=== PATIENT | female | born 1985 | race Caucasian/White ===

== ENCOUNTER 2018-05-13 11:07 | Observation (INO) ==
--- NOTE | 2018-05-13 12:36 | Emergency Department Note ---
Disposition Clinical Impression: Elevated bilirubin, Elevated transaminase level, Thickening of wall of gallbladder, Jaundice Disposition: Admitted As Inpatient Condition: Undetermined Time of Disposition: 16:15 General Adult HPI - General Chief complaint: ED Abdominal Pain Stated complaint: Abd Pain Time Seen by Provider: 05/13/18 11:46 Source: patient, EMS Mode of arrival: EMS Limitations: no limitations Nursing Notes Reviewed: Yes Vital Signs Reviewed: Yes - History of Present Illness HPI Narrative: 32-year-old female IV drug abuser arrives to the emergency department with complaint of right upper quadrant abdominal pain and nausea and vomiting. The patient was seen in urgent care earlier today was noted to be jaundiced. 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 Patient states that the patient was concerned when she went to urgent care and they told her to come to the emergency department with concern for possible acute hepatitis. The patient admits to roughly 3 days of skin color. She denies any change in stool color, dysuria, lower abdominal pain, vomiting, headaches, fevers, chills. Patient denies any other complaints at this time - Related Data Home Medications Medication Instructions Recorded Confirmed Albuterol Sulfate [Ventolin Hfa] 2 puff PO DAILY PRN 05/13/18 05/13/18 Loratadine [Claritin] 10 mg PO DAILY 05/13/18 05/13/18 Omeprazole [PriLOSEC] 20 mg PO DAILY 05/13/18 05/13/18 PARoxetine HCl [Paroxetine HCl] 20 mg PO DAILY 05/13/18 05/13/18 Quetiapine Fumarate [SEROquel] 25 mg PO HS 05/13/18 05/13/18 clonazePAM [Clonazepam] 1 tab PO BID 05/13/18 05/13/18 Allergies Allergy/AdvReac Type Severity Reaction Status Date / Time No Known Allergies Allergy Verified 01/27/18 23:39 All systems ED: reviewed and negative except as stated. Constitutional: Denies: fever, chills, weakness ENT ED: Denies: dysphagia Cardiovascular: Denies: chest pain Respiratory: Denies: dyspnea Gastrointestinal: Reports: abdominal pain, nausea. Denies: vomiting, diarrhea, constipation, hematemesis, melena, hematochezia Genitourinary: Denies: urgency, dysuria Musculoskeletal: Denies: back pain, neck pain Integumentary: Denies: rash Neurological: Denies: headache Past Medical History - Past Medical History Attestation: Yes The following information was validated with the patient. Source: patient, old records reviewed Medical history: Reports: asthma Surgical history: Reports: non-contributory Psychiatric history: Reports: anxiety, depression - Social History Smoking Status: Never smoker Alcohol use: Reports: none Drug use: Reports: opiates, marijuana, IV Drug Use Physical Exam - General Limitations: no limitations General appearance: alert, in no apparent distress - Head Head exam: atraumatic, normocephalic, normal inspection - Eye Eye exam: Present: PERRL, EOMI, scleral icterus - ENT ENT exam: normal exam, normal oropharynx, mucous membranes moist - Neck Neck exam: Present: normal inspection, full ROM, trachea midline - Chest Chest inspection: Present: normal inspection, symmetric chest wall rise - Respiratory Respiratory exam: Present: normal lung sounds bilaterally - Cardiovascular Cardiovascular exam: Present: regular rate, normal rhythm, normal heart sounds - Abdominal Exam Abdominal exam: Present: soft, tenderness (RUQ). Absent: distention, guarding, rebound, rigidity, Chapman's sign, Rovsing's sign, tenderness at McBurney's Point, pulsatile mass, hernia - Extremities Exam Extremities exam: Present: normal inspection, full ROM. Absent: tenderness, pedal edema - Neurological Exam Neurological exam: Present: alert, oriented X3, other (No asterixis) - Skin Skin exam: Present: warm, dry, intact, other (Jaundice) Course - Consultations Consultation #1: We spoke with Dr. Camacho in general surgery given the patient's ultrasound. He felt as though this was likely a primary hepatic versus obstructive disease. He recommended MRCP and consultation to GI. He did not recommend antibiotics for further care at this time. Time: 16:07 Consultation #2: We spoke with gastroenterology who recommended MRCP. They will see the patient in consultation. Consultation is placed at this time. Time: 16:07 Vital Signs Pulse Rate 103 05/13/18 13:45 Respiratory Rate 18 05/13/18 13:45 Blood Pressure 106/81 05/13/18 13:45 Temperature 98.2 F 05/13/18 14:06 Pulse Rate 103 05/13/18 14:06 Respiratory Rate 18 05/13/18 14:06 Blood Pressure 106/81 05/13/18 14:06 O2 Sat by Pulse Oximetry 100 05/13/18 14:06 Oxygen Delivery Oxygen Delivery Room Air Medical Decision Making - MDM Narrative Medical decision making narrative: Patient's workup in the emergency department demonstrates findings consistent with concern for acute hepatitis versus biliary obstructive disease. The patient had a right upper quadrant ultrasound which demonstrated gallbladder wall thickening at 15 mm. There was also some noted paracolic cystic fluid. We consulted general surgery, Dr. Camacho, who felt as though this was not associated with the patient's gallbladder and was likely a primary hepatic or obstructive biliary disease. The patient case was also discussed with gastroenterology per recommendation from general surgery. After speaking with gastroenterology, they recommended MRCP and admission to the hospitalist. General surgery stated that they would not recommend antibiotics at this time. We will hold any anabolic. The patient was found to be leukopenic a white blood cell count of 3.1. The patient's bilirubin was elevated both in direct and indirect. The patient's transaminases were also elevated. The patient has no signs of urinary tract infection. The patient is not . We will admit the patient to the hospitalist at this time, accepted by Dr. Garrett. - Lab Data Lab results reviewed: Yes I reviewed the patient's lab results. Result diagrams: 05/13/18 11:37 05/13/18 11:53 Lab Results 05/13/18 05/13/18 05/13/18 Range/Units 11:20 11:20 11:20 WBC (4.3-11.1) K/mcL RBC (3.82-4.97) M/mcL Hgb (11.5-15.4) g/dL Hct (35.3-44.9) % MCV (83.0-100.0) fL MCH (28.0-33.3) pg MCHC (31.6-35.5) g/dL RDW (11.5-14.5) % Plt Count (140-400) K/mcL MPV (9.4-12.4) fL Immature Gran % (0-4) % Seg Neutrophils % % Lymphocytes % % Monocytes % % Eosinophils % % Basophils % % Neutrophils # (1.6-8.9) K/mcL Lymphocytes # (0.6-4.6) K/mcL Monocytes # (0.0-1.3) K/mcL Eosinophils # (0.0-0.6) K/mcL Basophils # (0.0-0.2) K/mcL Reactive Lymphocytes (Not Present) Platelet Estimate (Normal) Immature Plt Fraction (1.1-6.1) % Hypochromasia (Not Present) Poikilocytosis (Not Present) Target Cells (Not Present) PT (9.4-12.1) Seconds INR APTT (26.0-36.0) Seconds Sodium (136-145) mEq/L Potassium (3.5-5.1) mEq/L Chloride (98-107) mEq/L Carbon Dioxide (23-29) mEq/L BUN (6-20) mg/dL Creatinine (0.60-1.20) mg/dL Est GFR ( Amer) (> 60) Est GFR (Non-Af Amer) (> 60) BUN/Creatinine Ratio (6-26) Glucose (70-105) mg/dL Calculated Osmolality (280-300) Calcium (8.6-10.3) mg/dL Total Bilirubin (0.3-1.0) mg/dL Direct Bilirubin (0.0-0.2) mg/dL Indirect Bilirubin (0.0-1.2) mg/dL AST (13-39) Units/L ALT (7-52) Units/L Alkaline Phosphatase (34-104) Units/L Serum Total Protein (6.4-8.9) g/dL Albumin (3.5-5.7) g/dL Globulin (2.4-3.5) g/dL Albumin/Globulin Ratio (1.1-2.2) Lipase (11-82) Units/L Urine Color TNP Yellow Urine Clarity TNP Clear Urine pH TNP 7.5 Ur Specific [place] TNP 1.013 Urine Protein TNP Negative Urine Glucose (UA) TNP Normal Urine Ketones TNP Negative Urine Blood TNP Negative Urine Nitrite TNP Negative Urine Bilirubin TNP Moderate H Urine Urobilinogen TNP Normal Ur Leukocyte Esterase TNP Trace H Urine Microscopic RBC TNP 0-3 Urine Microscopic WBC MAITRE D' 0-3 Ur Squamous Epith Cells TNP Many H Urine Bacteria TNP Moderate H Urine Test Negative (Negative) Hep Bs Antigen (Nonreactive) HIV Ag/Ab Combo Qual (Nonreactive) 05/13/18 05/13/18 05/13/18 Range/Units 11:37 11:37 11:53 WBC 3.1 L (4.3-11.1) K/mcL RBC 4.87 (3.82-4.97) M/mcL Hgb 12.7 (11.5-15.4) g/dL Hct 40.2 (35.3-44.9) % MCV 82.5 L (83.0-100.0) fL MCH 26.1 L (28.0-33.3) pg MCHC 31.6 (31.6-35.5) g/dL RDW 16.2 H (11.5-14.5) % Plt Count 309 (140-400) K/mcL MPV 10.9 (9.4-12.4) fL Immature Gran % 0.3 (0-4) % Seg Neutrophils % 51.8 % Lymphocytes % 37.3 % Monocytes % 8.0 % Eosinophils % 2.3 % Basophils % 0.3 % Neutrophils # 1.6 (1.6-8.9) K/mcL Lymphocytes # 1.2 (0.6-4.6) K/mcL Monocytes # 0.3 (0.0-1.3) K/mcL Eosinophils # 0.1 (0.0-0.6) K/mcL Basophils # 0.0 (0.0-0.2) K/mcL Reactive Lymphocytes Present A (Not Present) Platelet Estimate Normal (Normal) Immature Plt Fraction 3.4 (1.1-6.1) % Hypochromasia Present A (Not Present) Poikilocytosis 1+ A (Not Present) Target Cells 1+ A (Not Present) PT 14.9 H (9.4-12.1) Seconds INR 1.3 APTT 34.3 (26.0-36.0) Seconds Sodium 140 (136-145) mEq/L Potassium 3.8 (3.5-5.1) mEq/L Chloride 104 (98-107) mEq/L Carbon Dioxide 28 (23-29) mEq/L BUN 4 L (6-20) mg/dL Creatinine 0.63 (0.60-1.20) mg/dL Est GFR ( Amer) > 60 (> 60) Est GFR (Non-Af Amer) > 60 (> 60) BUN/Creatinine Ratio 6 (6-26) Glucose 105 (70-105) mg/dL Calculated Osmolality 287 (280-300) Calcium 9.2 (8.6-10.3) mg/dL Total Bilirubin 6.9 H (0.3-1.0) mg/dL Direct Bilirubin 5.0 H (0.0-0.2) mg/dL Indirect Bilirubin 1.9 H (0.0-1.2) mg/dL AST 313 H (13-39) Units/L ALT > 500 H (7-52) Units/L Alkaline Phosphatase 302 H (34-104) Units/L Serum Total Protein 7.1 (6.4-8.9) g/dL Albumin 3.5 (3.5-5.7) g/dL Globulin 3.6 H (2.4-3.5) g/dL Albumin/Globulin Ratio 1.0 L (1.1-2.2) Lipase 71 (11-82) Units/L Urine Color Urine Clarity Urine pH Ur Specific [place] Urine Protein Urine Glucose (UA) Urine Ketones Urine Blood Urine Nitrite Urine Bilirubin Urine Urobilinogen Ur Leukocyte Esterase Urine Microscopic RBC Urine Microscopic WBC Ur Squamous Epith Cells Urine Bacteria Urine Test (Negative) Hep Bs Antigen (Nonreactive) HIV Ag/Ab Combo Qual (Nonreactive) 05/13/18 Range/Units 11:53 WBC (4.3-11.1) K/mcL RBC (3.82-4.97) M/mcL Hgb (11.5-15.4) g/dL Hct (35.3-44.9) % MCV (83.0-100.0) fL MCH (28.0-33.3) pg MCHC (31.6-35.5) g/dL RDW (11.5-14.5) % Plt Count (140-400) K/mcL MPV (9.4-12.4) fL Immature Gran % (0-4) % Seg Neutrophils % % Lymphocytes % % Monocytes % % Eosinophils % % Basophils % % Neutrophils # (1.6-8.9) K/mcL Lymphocytes # (0.6-4.6) K/mcL Monocytes # (0.0-1.3) K/mcL Eosinophils # (0.0-0.6) K/mcL Basophils # (0.0-0.2) K/mcL Reactive Lymphocytes (Not Present) Platelet Estimate (Normal) Immature Plt Fraction (1.1-6.1) % Hypochromasia (Not Present) Poikilocytosis (Not Present) Target Cells (Not Present) PT (9.4-12.1) Seconds INR APTT (26.0-36.0) Seconds Sodium (136-145) mEq/L Potassium (3.5-5.1) mEq/L Chloride (98-107) mEq/L Carbon Dioxide (23-29) mEq/L BUN (6-20) mg/dL Creatinine (0.60-1.20) mg/dL Est GFR ( Amer) (> 60) Est GFR (Non-Af Amer) (> 60) BUN/Creatinine Ratio (6-26) Glucose (70-105) mg/dL Calculated Osmolality (280-300) Calcium (8.6-10.3) mg/dL Total Bilirubin (0.3-1.0) mg/dL Direct Bilirubin (0.0-0.2) mg/dL Indirect Bilirubin (0.0-1.2) mg/dL AST (13-39) Units/L ALT (7-52) Units/L Alkaline Phosphatase (34-104) Units/L Serum Total Protein (6.4-8.9) g/dL Albumin (3.5-5.7) g/dL Globulin (2.4-3.5) g/dL Albumin/Globulin Ratio (1.1-2.2) Lipase (11-82) Units/L Urine Color Urine Clarity Urine pH Ur Specific [place] Urine Protein Urine Glucose (UA) Urine Ketones Urine Blood Urine Nitrite Urine Bilirubin Urine Urobilinogen Ur Leukocyte Esterase Urine Microscopic RBC Urine Microscopic WBC Ur Squamous Epith Cells Urine Bacteria Urine Test (Negative) Hep Bs Antigen Nonreactive (Nonreactive) HIV Ag/Ab Combo Qual Nonreactive (Nonreactive) - Radiology Data Radiology results reviewed: Yes I reviewed the patient's radiology results. Gallbladder Ultrasound 05/13/18 15:29 IMPRESSION: Prominent gallbladder wall thickening with small sludge and pericholecystic fluid, concerning for acute cholecystitis. No biliary dilatation identified. D/ / Luigi Gee / Luigi Gee Interpreting Provider: Luigi Gee Attestation Statement - Attestation Attestation: I examined this patient and my medical decision-making was reviewed with the Resident Physician. I agree with the documented findings, disposition and tr eatment plan as described except to the extent set forth below. Suspects acute hepatitis C infection. Patient's INR is actually normal. Gallbladder ultrasound does suggest some gallbladder wall thickening with no stones. I do suspect this is reactionary from underlying inflammation from hepatitis. We will admit for further management workup by gastroenterology.
[2018-05-13 12:48] LABS: INR 1.3; Prothrombin Time 14.9 Seconds (9.4-12.1)
[2018-05-13 12:51] LABS: Activated Partial Thrombo Time 34.3 Seconds (26.0-36.0)
[2018-05-13] MEDS ORDERED: Ondansetron 4 MG/2 ML VIAL ONE (13:12)
[2018-05-13 13:35] LABS: Basophils % 0.3 %; Eosinophils # 0.1 K/mcL (0.0-0.6); Eosinophils % 2.3 %; Hematocrit 40.2 % (35.3-44.9); Hemoglobin 12.7 g/dL (11.5-15.4); Immature Granulocytes % 0.3 % (0-4); Immature Platelets 3.4 % (1.1-6.1); Lymphocytes # 1.2 K/mcL (0.6-4.6); Lymphocytes % 37.3 %; Mean Corpuscular HGB Conc 31.6 g/dL (31.6-35.5); Mean Corpuscular Hemoglobin 26.1 pg (28.0-33.3); Mean Corpuscular Volume 82.5 fL (83.0-100.0); Mean Platelet Volume 10.9 fL (9.4-12.4); Monocytes # 0.3 K/mcL (0.0-1.3); Neutrophils # 1.6 K/mcL (1.6-8.9); Platelet Count 309 K/mcL (140-400); Red Blood Count 4.87 M/mcL (3.82-4.97); Red Cell Distribution Width 16.2 % (11.5-14.5); Segmented Neutrophils % 51.8 %
[2018-05-13 13:59] LABS: Hypochromasia Present (Not Present); Platelet Estimate Normal (Normal); Reactive Lymphocytes Present (Not Present)
[2018-05-13 14:00] LABS: Poikilocytosis 1+ (Not Present); Target Cells 1+ (Not Present)
[2018-05-13 15:07] LABS: Alanine Aminotransferase > 500 Units/L (7-52); Albumin 3.5 g/dL (3.5-5.7); Alkaline Phosphatase 302 Units/L (34-104); Aspartate Amino Transferase 313 Units/L (13-39); BUN/Creatinine Ratio 6 (6-26); Bilirubin,Indirect 1.9 mg/dL (0.0-1.2); Bilirubin,Total 6.9 mg/dL (0.3-1.0); Blood Urea Nitrogen 4 mg/dL (6-20); Calcium 9.2 mg/dL (8.6-10.3); Carbon Dioxide 28 mEq/L (23-29); Chloride 104 mEq/L (98-107); Globulin 3.6 g/dL (2.4-3.5); Glucose 105 mg/dL (70-105); Lipase 71 Units/L (11-82); Osmolality,Calculated 287 (280-300); Potassium 3.8 mEq/L (3.5-5.1); Sodium 140 mEq/L (136-145); Total Protein 7.1 g/dL (6.4-8.9); eGFR For Non-African Americans > 60 (> 60)
[2018-05-13 15:18] LABS: HIV-1&2 Antibody & p24 Ag Nonreactive (Nonreactive); Hepatitis B Surface Antigen Nonreactive (Nonreactive)
[2018-05-13 15:45] LABS: Bilirubin,Urine Moderate (Negative); Blood,Urine Negative (Negative); Clarity,Urine Clear (Clear); Color,Urine Yellow (Yellow); Glucose,Urine (UA) Normal (Normal); Ketones,Urine Negative (Negative); PH,Urine 7.5 pH Units (5.0-8.0); Specific Gravity,Urine 1.013 (1.010-1.025)
[2018-05-13 15:46] LABS: Bacteria,Urine Moderate per hpf (None-Few); Leukocyte Esterase,Urine Trace (Negative); Nitrite,Urine Negative (Negative); Protein,Urine Negative (Neg-Trace); RBC,Urine 0-3 per hpf (0-3); Squamous Epithelial Cell,Urine Many per lpf (None-Few); Urobilinogen,Urine Normal (Normal); WBC,Urine 0-3 per hpf (0-3)
--- NOTE | 2018-05-13 16:48 | Internal Med History&Physical ---
Date of Encounter: 05/13/18 Time of Encounter: 16:43 Internal Medicine - H&P: HPI Chief complaint: RUQ abdominal pain Admitted From: Home Plans for Post Hospital Care: Home History of present illness: Ms. Miroslava Donato is a 32 year old female with history of IV drug use with heroine who presents with jaundice. She reports using heroine 05/12/2018. States she notice she was turning yellow a week ago and her urine was dark. States she was having pain that would come when she would breath deep. She states she has been cold. She denies nausea and vomiting. She reports some dysuria, but denies frequency or urgency. She denies hx of STD, HIV, and HEpatitis. She states she is currently with 3 children. In ED WBC 3.1, hgb 12.7, hct 40.2. PT 14.9, INR 1.3. NA 140, K 3.8, BUN 4, Cr 0.63. Total bilirubin 6.9, AST 313, ALT > 500, Alk phos 302. Lipase 71. Urine bilirubin moderate, trace leuks, mod squamous epith, moderate bacteria. Urine HCG neg. Hep Bs antigen Non-reactive, HIV ag/ab non-reactive. Abdominal US US/US gall bladder IMPRESSION: Prominent gallbladder wall thickening with small sludge and pericholecystic fluid, concerning for acute cholecystitis. No biliary dilatation identified. CODE STATUS: FULL Past Med Surg Social Fam HX - Past Medical History Medical history: asthma Additional medical history: duodenal ulcer. UTIs Psychiatric history: anxiety, depression - Past Surgical History Surgical History: non-contributory Additional surgical history: tubal ligation. teeth extracted. bladder tuck. ear tubes - Social History Smoking Status: Never smoker Alcohol use: none Drug use: opiates, marijuana, IV Drug Use Internal Medicine - H&P: Meds Cyclobenzaprine [Flexeril] 10 mg PO BID PRN #6 tablet 01/28/18 [Rx] Naproxen [Naprosyn] 250 mg PO BID PRN #6 tablet 01/28/18 [Rx] Albuterol Sulfate [Ventolin Hfa] 05/13/18 [History] Loratadine [Claritin] 05/13/18 [History] Omeprazole [PriLOSEC] 05/13/18 [History] PARoxetine HCl [Paroxetine HCl] 20 mg PO 05/13/18 [History] Quetiapine Fumarate [SEROquel] 25 mg PO HS 05/13/18 [History] clonazePAM [Clonazepam] 05/13/18 [History] Allergy/AdvReac Type Severity Reaction Status Date / Time No Known Allergies Allergy Verified 01/27/18 23:39 All Systems PM: A 10-system review of systems was performed and is negative for pertinent findings except as documented above in the HPI. - Constitutional Vitals: Temp Pulse Resp BP Pulse Ox 98.2 F 103 18 106/81 100 05/13/18 14:06 05/13/18 14:06 05/13/18 14:06 05/13/18 14:06 05/13/18 14:06 General appearance: Present: A&O X 3, no acute distress Exam: Pt appears to be high or under the influence of drugs - Head Head exam: Present: atraumatic, normocephalic - Eye Eye exam: Present: PERRL, scleral icterus ( ), conjuntiva pink Pupils: Present: PERRL - Neck Neck exam general surgery: Present: supple, trachea midline. Absent: lymphadenopathy - Respiratory Respiratory exam: Present: CTAB. Absent: accessory muscle use, rales, rhonchi, wheezes - Cardiovascular Cardiovascular exam: Present: RRR, +S1, +S2. Absent: diastolic murmur, gallop, rubs, systolic murmur - GI/Abdominal GI/Abdominal exam: Present: normal bowel sounds, soft, no peritoneal signs. Absent: distended, tenderness - Extremities Exam Extremities exam: Present: warm, radial pulses palpable and symmetrical. Absent: calf tenderness, cyanotic, pedal edema - Neurological Exam Neurological exam: Present: CN II-XII intact, oriented X3, no focal deficits. Absent: pronater drift, facial droop, speech deficit - Skin Skin exam: Present: dry, intact Additional comments: multiple skin tattoos and jaundice Internal Med - H&P Results - Labs CBC & Chem 7: 05/13/18 11:37 05/13/18 11:53 Labs: Short CBC 05/13/18 Range/Units 11:37 WBC 3.1 L (4.3-11.1) K/mcL Hgb 12.7 (11.5-15.4) g/dL Hct 40.2 (35.3-44.9) % Plt Count 309 (140-400) K/mcL Neutrophils # 1.6 (1.6-8.9) K/mcL BMP 05/13/18 11:53 Sodium 140 Potassium 3.8 Chloride 104 Carbon Dioxide 28 BUN 4 L Creatinine 0.63 Glucose 105 Calcium 9.2 Liver Function 05/13/18 Range/Units 11:53 Total Bilirubin 6.9 H (0.3-1.0) mg/dL Direct Bilirubin 5.0 H (0.0-0.2) mg/dL AST 313 H (13-39) Units/L ALT > 500 H (7-52) Units/L Alkaline Phosphatase 302 H (34-104) Units/L Albumin 3.5 (3.5-5.7) g/dL Urine 05/13/18 05/13/18 Range/Units 11:20 11:20 Urine Color TNP Yellow Urine Clarity TNP Clear Urine pH TNP 7.5 Ur Specific [place] TNP 1.013 Urine Protein TNP Negative Urine Glucose (UA) TNP Normal - Impressions ITS Impressions Gallbladder Ultrasound 05/13/18 15:29 IMPRESSION: Prominent gallbladder wall thickening with small sludge and pericholecystic fluid, concerning for acute cholecystitis. No biliary dilatation identified. D/ / Luigi Gee / Luigi Gee Interpreting Provider: Luigi Gee - Assessment and plan (1) Acute hepatitis Current Visit: Yes Status: Acute Assessment and plan: Elevated transaminase. Hepatitis panel pending. Will monitor CMP QD. (2) Elevated transaminase level Current Visit: Yes Status: Acute Assessment and plan: Pt denies prior history of hepatitis. Checking hepatitis panel. Abdominal US showing wall thickening which can also been seen in acute Hep A. Will monitor LFT's. GI consulted by ED (3) Elevated bilirubin Current Visit: Yes Status: Acute Assessment and plan: Bili 6.9. Will rehceck levels in am. (4) Thickening of wall of gallbladder Current Visit: Yes Status: Acute Assessment and plan: Pt afebrile and WBC 3.1. Will check NM scan if Hep panel neg. (5) Jaundice Current Visit: Yes Status: Acute Assessment and plan: Bilirubin 6.9. Will monitor CMP and Hepatitis panel in progress. (6) IV drug user Current Visit: Yes Status: Acute Assessment and plan: Pt admits to using heroine. Will check urine tox screen. - Time Spent With Patient Total time spent is greater than 50% in coordination of care (as documented) at patient's floor/unit and/or counseling patient: 25 - 35 minutes
[2018-05-13] MEDS ORDERED: Naloxone 0.4 MG/ML INJ IVP PRN (17:46)
[2018-05-13] MEDS: traMADol 50 MG TABLET PO PRN (18:50)
[2018-05-13] MEDS: Ondansetron 4 MG/2 ML VIAL IVP PRN (18:50)
[2018-05-13 22:00] LABS: Amphetamine Screen,Urine Negative ng/mL (Cutoff=1000); Barbiturate Screen,Urine Negative ng/mL (Cutoff=200); Benzodiazepines Screen,Urine Positive ng/mL (Cutoff=200); Cannabinoid Screen,Urine Negative ng/mL (Cutoff = 50); Cocaine Screen,Urine Negative ng/mL (Cutoff= 300); Opiate Screen,Urine Positive ng/mL (Cutoff=300); Phencyclidine Screen,Urine Negative ng/mL (Cutoff=25)
[2018-05-13] MEDS: clonazePAM 0.5 MG TABLET PO SCH (23:01)
[2018-05-14 01:46] LABS: Hepatitis A Antibody IgM Reactive (Nonreactive); Hepatitis C Virus Antibody Reactive (Nonreactive)
[2018-05-14 01:57] LABS: Hepatitis B Core IgM Nonreactive (Nonreactive)
[2018-05-14 05:37] LABS: Basophils % 0.3 %; Eosinophils # 0.1 K/mcL (0.0-0.6); Eosinophils % 1.9 %; Hemoglobin 9.1 g/dL (11.5-15.4); Lymphocytes # 1.4 K/mcL (0.6-4.6); Lymphocytes % 37.1 %; Mean Corpuscular HGB Conc 31.4 g/dL (31.6-35.5); Mean Corpuscular Hemoglobin 25.8 pg (28.0-33.3); Mean Corpuscular Volume 82.2 fL (83.0-100.0); Monocytes # 0.4 K/mcL (0.0-1.3); Monocytes % 10.4 %; Neutrophils # 1.9 K/mcL (1.6-8.9); Platelet Count 297 K/mcL (140-400); Red Blood Count 3.53 M/mcL (3.82-4.97); Red Cell Distribution Width 16.6 % (11.5-14.5); Segmented Neutrophils % 50.3 %
[2018-05-14] MEDS: *HR* Enoxaparin 40 MG/0.4 ML SYRINGE SQ SCH (06:11)
[2018-05-14 06:33] LABS: Platelet Estimate Normal (Normal); Reactive Lymphocytes Present (Not Present)
[2018-05-14] MEDS ORDERED: clonazePAM 0.5 MG TABLET PO SCH (09:00)
[2018-05-14] MEDS: clonazePAM 0.5 MG TABLET PO SCH ×2 (09:13→20:41)
[2018-05-14] MEDS: Loratadine 10 MG TABLET PO SCH (09:13)
[2018-05-14] MEDS: 0.9 % Sodium Chloride 1,000 ML IVC SCH (10:41)
[2018-05-14] MEDS: traMADol 50 MG TABLET PO PRN (10:42)
[2018-05-14] MEDS: Ondansetron 4 MG/2 ML VIAL IVP PRN (10:43)
--- NOTE | 2018-05-14 10:44 | Gastroenterology Consult Note ---
<Wellington Snider - Last Filed: 05/14/18 10:41> Date of Encounter: 05/14/18 Time of Encounter: 09:45 - Assessment and plan (1) Hepatitis A Current Visit: Yes Status: Acute Assessment and plan: Hepatitis A positive. Pt does eat at a restaurant frequently. Continue to monitor hepatic panel. HAV infection is usually a self-limited illness. Fulminant hepatic failure occurs in less than 1 percent of cases. Infection confers lifelong immunity. - Handwashing (including after using the bathroom, changing diapers, and before preparing or eating foods). - Heating foods appropriately (the virus can be inactivated by heating to >185F for one minute). Cooked foods can transmit HAV if the temperature during food preparation is inadequate to kill the virus or if food is contaminated after cooking. - Chlorine, iodine, and disinfecting solutions (household bleach 1:100 dilution) are effective for inactivation of HAV. Qualifiers: Hepatic coma status: without hepatic coma Qualified Code(s): B15.9 - Hepatitis A without hepatic coma (2) Hepatitis C antibody positive in blood Current Visit: Yes Status: Acute Assessment and plan: Hepatitis C screening positive. Will complete liver workup including hepatitis C quantitative and genotype to assess for active infection. Patient must be drug and alcohol free in order to qualify for treatment. Instructed patient to not share any thing that could potentially cause bleeding such as razors, nail clippers, hair clippers, needles. Instructed patient that if they were to cut themselves they need to clean up the blood or if someone else cleans up they need to wear gloves. Instructed patient they need to use protection while having sex. (3) Jaundice Current Visit: Yes Status: Acute Assessment and plan: Secondary to hepatitis A. (4) IV drug user Current Visit: Yes Status: Acute - Time Spent With Patient Total time spent is greater than 50% in coordination of care (as documented) at patient's floor/unit and/or counseling patient: GI History of Present Illness - Data of Consult Patient: new to practice Consult date: 05/14/18 Requesting Physician: Paolo Appiah MD - Consult Narrative Reason for consult: Hepatitis History of present illness: Ms. Miroslava Donato is a 32 year old female with PMHx of asthma and IV drug use who presented with jaundice. She reports using heroin 05/12/2018. She reports sharin g needles and denies any intranasal drug use. She has multiple tattoos, and states they were all professionally completed. She reports eating out frequently. States she notice she was turning yellow a week ago and her urine was dark. She denies hx of STD, HIV, and Hepatitis. She denies any change in stool color, dysuria, lower abdominal pain, vomiting, headaches, fevers, chills. RUQ US showed gallbladder wall thickening at 15 mm with small sludge and pericholecystic fluid, concerning for acute cholecystitis. MRCP with gallbladder sludge, periportal edema, diffuse moderate wall edema of the gallbladder which shows intraluminal sludge could be due to hepatitis if applicable, acute cholecystitis is possible. Hepatitis profile positive for Hepatitis A, also hepatitis C screening was positive. Procedures: None NSAIDs: None Anticoagulation: None Past Med Surg Social Fam HX - Past Medical History Medical history: asthma Additional medical history: duodenal ulcer. UTIs Psychiatric history: anxiety, depression - Past Surgical History Surgical History: non-contributory Additional surgical history: tubal ligation. teeth extracted. bladder tuck. ear tubes - Social History Smoking Status: Never smoker Smokeless Tobacco Status: No Alcohol use: none Drug use: opiates, marijuana, IV Drug Use - Family History Mother History Unknown: Yes Father History Unknown: Yes - Gastrointestinal Gastrointestinal: Present: as per HPI - Constitutional Constitutional: as per HPI - EENT Eyes: as per HPI Ears: Present: as per HPI Nose, mouth and throat: Present: as per HPI - Cardiovascular Cardiovascular ROS: Present: as per HPI - Respiratory Respiratory IM: Present: as per HPI - Genitourinary Genitourinary: Absent: change in color, Urinary frequency - Neurological ROS Neurological GI: Present: as per HPI - Hematologic/Lymphatic Hematologic/Lymphatic pediatric: Present: as per HPI - Musculoskeletal Musculoskeletal ROS GI: Present: as per HPI - Psychiatric ROS Psychiatric GI: Present: as per HPI - Endocrine Endocrine IM: Present: as per HPI - Constitutional Vitals: Temp Pulse Resp BP Pulse Ox 98.2 F 96 16 99/66 95 05/14/18 07:06 05/14/18 07:06 05/14/18 07:06 05/14/18 07:06 05/14/18 07:06 General appearance: Present: cooperative, A&O X 3, no acute distress, answers questions appropriately - Head Head exam: Present: atraumatic, normocephalic - Eye Eye exam: Present: scleral icterus. Absent: normal appearance - ENT ENT exam: Present: mucous membranes moist - Neck Neck exam general surgery: Present: normal inspection, trachea midline - Respiratory Respiratory exam: Present: CTAB. Absent: rales, rhonchi, wheezes - Cardiovascular Cardiovascular exam: Present: RRR, +S1, +S2 - GI/Abdominal GI/Abdominal exam: Present: soft, tenderness (RUQ), no peritoneal signs. Absent: distended, firm, guarding - Rectal Rectal exam: Present: deferred - Extremities Exam Extremities exam: Present: warm - Neurological Exam Neurological exam: Present: no focal deficits - Psychiatric Psychiatric exam: Present: normal affect, normal mood - Skin Skin exam: Present: dry, intact, warm. Absent: normal color (jaundice) Additional comments: multiple tattoos Results - Labs CBC & Chem 7: 05/14/18 05:16 05/13/18 11:53 Labs: Last Result Calcium 9.2 mg/dL (8.6-10.3) 05/13/18 11:53 Urine Opiates Screen Positive ng/mL (Tpbzca=[id number]) H 05/13/18 20:50 Entire Visit Hgb 9.1 g/dL (11.5-15.4) L D 05/14/18 05:16 Hct 29.0 % (35.3-44.9) L 05/14/18 05:16 PT 14.9 Seconds (9.4-12.1) H 05/13/18 11:37 Total Bilirubin 6.9 mg/dL (0.3-1.0) H 05/13/18 11:53 AST 313 Units/L (13-39) H 05/13/18 11:53 ALT > 500 Units/L (7-52) H 05/13/18 11:53 Lipase 71 Units/L (11-82) 05/13/18 11:53 - ABG ABG results: PT/INR, D-dimer PT 14.9 Seconds (9.4-12.1) H 05/13/18 11:37 - Impressions Impressions Gallbladder Ultrasound 05/13/18 15:29 IMPRESSION: Prominent gallbladder wall thickening with small sludge and pericholecystic fluid, concerning for acute cholecystitis. No biliary dilatation identified. D/ / Luigi Gee / Luigi Gee Interpreting Provider: Luigi Gee Abdomen MRI 05/13/18 16:04 IMPRESSION: Gallbladder sludge. Periportal edema, nonspecific finding which can be seen acute inflammatory processes in the upper abdomen to include hepatitis. Diffuse moderate wall edema of the gallbladder which shows intraluminal sludge. Gallbladder wall edema could be due to hepatitis if applicable. Acute cholecystitis is possible. Hepatobiliary scan may be helpful if indicated. Normal MRCP. Acute cholecystitis is D/ / Tena Bain Cha, MD / Tena Bain Cha, MD Interpreting Provider: Tena Bain Cha, MD Consult Discharge Plan - Plan Referrals: Suzie Acharya CNP [Primary Care Provider] - <Jamir Reed - Last Filed: 05/14/18 18:41> Time of Encounter: 12:00 - Time Spent With Patient Total time spent is greater than 50% in coordination of care (as documented) at patient's floor/unit and/or counseling patient: GI History of Present Illness - Data of Consult Requesting Physician: Paolo Appiah MD - Consult Narrative History of present illness: Ms. Miroslava Donato is a 32 year old female - Constitutional Vitals: Temp Pulse Resp BP Pulse Ox 98.5 F 96 16 110/75 96 05/14/18 14:11 05/14/18 14:11 05/14/18 14:11 05/14/18 14:11 05/14/18 14:11 Results - Labs CBC & Chem 7: 05/14/18 05:16 05/14/18 10:23 Labs: Last Result Calcium 8.9 mg/dL (8.6-10.3) 05/14/18 10:23 Ferritin 166 ng/mL (10-120) H 05/14/18 10:23 Urine Opiates Screen Positive ng/mL (Myxnpc=336) H 05/13/18 20:50 Entire Visit Hgb 9.1 g/dL (11.5-15.4) L D 05/14/18 05:16 Hct 29.0 % (35.3-44.9) L 05/14/18 05:16 PT 14.9 Seconds (9.4-12.1) H 05/13/18 11:37 Ferritin 166 ng/mL (10-120) H 05/14/18 10:23 Total Bilirubin 6.5 mg/dL (0.3-1.0) H 05/14/18 10:23 AST 222 Units/L (13-39) H 05/14/18 10:23 ALT > 500 Units/L (7-52) H 05/14/18 10:23 Lipase 71 Units/L (11-82) 05/13/18 11:53 - ABG ABG results: PT/INR, D-dimer PT 14.9 Seconds (9.4-12.1) H 05/13/18 11:37 - Attending Attestation I have personally performed a face to face evaluation on this patient. I have reviewed and agree with the care plan. History and Exam by me shows: pT SEEN, complaining of epigastric pain, o/e : Epigastric tanderness. A: Acute hepatitis A with elevated LFTS. Alos hep C positive Rec: Suppotive care, Pt still uses drugs
[2018-05-14 12:17] LABS: Alanine Aminotransferase > 500 Units/L (7-52); Albumin 3.3 g/dL (3.5-5.7); Alkaline Phosphatase 295 Units/L (34-104); Aspartate Amino Transferase 222 Units/L (13-39); BUN/Creatinine Ratio 11 (6-26); Bilirubin,Total 6.5 mg/dL (0.3-1.0); Blood Urea Nitrogen 8 mg/dL (6-20); Calcium 8.9 mg/dL (8.6-10.3); Carbon Dioxide 30 mEq/L (23-29); Chloride 99 mEq/L (98-107); Globulin 3.3 g/dL (2.4-3.5); Glucose 88 mg/dL (70-105); Osmolality,Calculated 278 (280-300); Potassium 3.8 mEq/L (3.5-5.1); Sodium 135 mEq/L (136-145); Total Protein 6.6 g/dL (6.4-8.9); eGFR For Non-African Americans > 60 (> 60)
[2018-05-14] MEDS ORDERED: Acetaminophen 325 MG TABLET PO ONE (13:49)
--- NOTE | 2018-05-14 18:04 | Internal Med Progress Note ---
Hospitalist Progress Note - Encounter Date of Encounter: 05/14/18 Time of Encounter: 18:02 - Subjective Interval History: Pt denies fever or chills. Jaundice about the same. She denies N/V or diarrhea. Pt states abdominal pain improved. Denies chest pain or SOB - Exam Vitals: Temp Pulse Resp BP Pulse Ox 98.5 F 96 16 110/75 96 05/14/18 14:11 05/14/18 14:11 05/14/18 14:11 05/14/18 14:11 05/14/18 14:11 Exam: General appearance: Present: A&O X 3, no acute distress. Pt appeared to be high or under the influence of drugs on admission. Exam: Pt appears to be high or under the influence of drugs - Head Head exam: Present: atraumatic, normocephalic - Eye Eye exam: Present: PERRL, scleral icterus ( ), conjuntiva pink Pupils: Present: PERRL - Neck Neck exam general surgery: Present: supple, trachea midline. Absent: lymphadenopathy - Respiratory Respiratory exam: Present: CTAB. Absent: accessory muscle use, rales, rhonchi, wheezes - Cardiovascular Cardiovascular exam: Present: RRR, +S1, +S2. Absent: diastolic murmur, gallop, rubs, systolic murmur - GI/Abdominal GI/Abdominal exam: Present: normal bowel sounds, soft, no peritoneal signs. Ab sent: distended, tenderness - Extremities Exam Extremities exam: Present: warm, radial pulses palpable and symmetrical. Absent: calf tenderness, cyanotic, pedal edema - Neurological Exam Neurological exam: Present: CN II-XII intact, oriented X3, no focal deficits. Absent: pronater drift, facial droop, speech deficit - Skin Skin exam: Present: dry, intact Additional comments: multiple skin tattoos and jaundice - Assessment and Plan (1) Acute hepatitis Current Visit: Yes Status: Acute Assessment and Plan: Elevated transaminases. Hepatitis panel resulted and positive Hep A and Hep C. Will continue to monitor CMP QD. Seen bby GI and Educated on Hep A. work up ordered for Hep C, Hep C quantitative and genotype to assess for active infection. Follow up out pt with GI at discharge. (2) Elevated transaminase level Current Visit: Yes Status: Acute Assessment and Plan: Pt denies prior history of hepatitis. Hepatitis panel positive for Hep A and Hep C. Abdominal US showing wall thickening which can also been seen in acute Hep A. Will continue to monitor LFT's. GI consulted by ED and saw in consult. (3) Elevated bilirubin Current Visit: Yes Status: Acute Assessment and Plan: Bili 6.9 now 6.5. Will rehceck levels in am. (4) Thickening of wall of gallbladder Current Visit: Yes Status: Acute Assessment and Plan: Pt afebrile and WBC 3.1. Will hold off on NM scan since Hep panel positive. (5) Jaundice Current Visit: Yes Status: Acute Assessment and Plan: Bilirubin 6.9. Will monitor CMP and Hepatitis panel in progress. (6) IV drug user Current Visit: Yes Status: Acute Assessment and Plan: Pt admits to using heroine. Will check urine tox screen. DVT Prophylaxis: Lovenox - Summary of Assessment and Plan Summary of Assessment and Plan: Ms. Miroslava Donato is a 32 year old female with PMHx of asthma and IV drug use who presented with jaundice. She reports using heroin 05/12/2018. She reports sharing needles and denies any intranasal drug use. She has multiple tattoos, and states they were all professionally completed. She reports eating out frequently. States she notice she was turning yellow a week ago and her urine was dark. She denies hx of STD, HIV, and Hepatitis. She denies any change in stool color, dysuria, lower abdominal pain, vomiting, headaches, fevers, chills. RUQ US showed gallbladder wall thickening at 15 mm with small sludge and pericholecystic fluid, concerning for acute cholecystitis. MRCP with gallbladder sludge, periportal edema, diffuse moderate wall edema of the gallbladder which shows intraluminal sludge could be due to hepatitis if applicable, acute cholecystitis is possible. - Time Spent with Patient Total time spent is greater than 50% in coordination of care (as documented) at patient's floor/unit and/or counseling patient: less than 15 minutes Plan of Care Discussed with: patient Internal Medicine: Result - Labs CBC & Chem 7: 05/14/18 05:16 05/14/18 10:23 Labs: Short CBC 05/14/18 Range/Units 05:16 WBC 3.8 L (4.3-11.1) K/mcL Hgb 9.1 L D (11.5-15.4) g/dL Hct 29.0 L (35.3-44.9) % Plt Count 297 (140-400) K/mcL Neutrophils # 1.9 (1.6-8.9) K/mcL BMP 05/14/18 10:23 Sodium 135 L Potassium 3.8 Chloride 99 Carbon Dioxide 30 H BUN 8 Creatinine 0.71 Glucose 88 Calcium 8.9 Liver Function 05/14/18 Range/Units 10:23 Total Bilirubin 6.5 H (0.3-1.0) mg/dL AST 222 H (13-39) Units/L ALT > 500 H (7-52) Units/L Alkaline Phosphatase 295 H (34-104) Units/L Albumin 3.3 L (3.5-5.7) g/dL - ABG Interpretation ABG results: PT/INR, D-dimer PT 14.9 Seconds (9.4-12.1) H 05/13/18 11:37 - Impressions Impressions Abdomen MRI 05/13/18 16:04 IMPRESSION: Gallbladder sludge. Periportal edema, nonspecific finding which can be seen acute inflammatory processes in the upper abdomen to include hepatitis. Diffuse moderate wall edema of the gallbladder which shows intraluminal sludge. Gallbladder wall edema could be due to hepatitis if applicable. Acute cholecystitis is possible. Hepatobiliary scan may be helpful if indicated. Normal MRCP. Acute cholecystitis is D/ / Tena Bain Cha, MD / Tena Bain Cha, MD Interpreting Provider: Tena Bain Cha, MD Consult Discharge Plan - Plan Referrals: Suzie Acharya CNP [Primary Care Provider] -
[2018-05-15] MEDS: 0.9 % Sodium Chloride 1,000 ML IVC SCH ×2 (03:27→17:37)
[2018-05-15 04:30] LABS: Eosinophils # 0.1 K/mcL (0.0-0.6); Hematocrit 27.9 % (35.3-44.9); Lymphocytes # 1.3 K/mcL (0.6-4.6); Mean Corpuscular HGB Conc 32.3 g/dL (31.6-35.5); Mean Corpuscular Hemoglobin 25.9 pg (28.0-33.3); Mean Corpuscular Volume 80.4 fL (83.0-100.0); Mean Platelet Volume 10.6 fL (9.4-12.4); Platelet Count 266 K/mcL (140-400); Red Blood Count 3.47 M/mcL (3.82-4.97); Red Cell Distribution Width 16.8 % (11.5-14.5)
[2018-05-15 05:09] LABS: Monocytes # 0.1 K/mcL (0.0-1.3); Neutrophils # 1.3 K/mcL (1.6-8.9); Platelet Estimate Normal (Normal)
[2018-05-15 05:10] LABS: Reactive Lymphocytes Present (Not Present)
[2018-05-15] MEDS: *HR* Enoxaparin 40 MG/0.4 ML SYRINGE SQ SCH (06:12)
[2018-05-15] MEDS: Ondansetron 4 MG/2 ML VIAL IVP PRN ×2 (06:15→21:32)
[2018-05-15] MEDS: Loratadine 10 MG TABLET PO SCH (08:34)
[2018-05-15] MEDS: traMADol 50 MG TABLET PO PRN ×2 (08:34→21:32)
[2018-05-15] MEDS: clonazePAM 0.5 MG TABLET PO SCH ×2 (08:34→21:29)
[2018-05-15] MEDS ORDERED: Acetaminophen/Butalbital/CaffeineTABLET PO ONE (09:20)
--- NOTE | 2018-05-15 13:35 | Internal Med Progress Note ---
Hospitalist Progress Note - Encounter Date of Encounter: 05/15/18 Time of Encounter: 13:32 - Subjective Interval History: Pt denies fever or chills. Jaundice about the same. She denies N/V or diarrhea. Pt states abdominal pain improved. Denies chest pain or SOB - Exam Vitals: Temp Pulse Resp BP Pulse Ox 98.1 F 92 16 110/80 96 05/15/18 10:21 05/15/18 10:21 05/15/18 10:21 05/15/18 10:21 05/15/18 10:21 Exam: General appearance: Present: A&O X 3, no acute distress. Pt appeared to be high or under the influence of drugs on admission. Exam: Pt appears to be high or under the influence of drugs - Head Head exam: Present: atraumatic, normocephalic - Eye Eye exam: Present: PERRL, scleral icterus ( ), conjuntiva pink Pupils: Present: PERRL - Neck Neck exam general surgery: Present: supple, trachea midline. Absent: lymphadenopathy - Respiratory Respiratory exam: Present: CTAB. Absent: accessory muscle use, rales, rhonchi, wheezes - Cardiovascular Cardiovascular exam: Present: RRR, +S1, +S2. Absent: diastolic murmur, gallop, rubs, systolic murmur - GI/Abdominal GI/Abdominal exam: Present: normal bowel sounds, soft, no peritoneal signs. Ab sent: distended, tenderness - Extremities Exam Extremities exam: Present: warm, radial pulses palpable and symmetrical. Absent: calf tenderness, cyanotic, pedal edema - Neurological Exam Neurological exam: Present: CN II-XII intact, oriented X3, no focal deficits. Absent: pronater drift, facial droop, speech deficit - Skin Skin exam: Present: dry, intact Additional comments: multiple skin tattoos and jaundice - Assessment and Plan (1) Acute hepatitis Current Visit: Yes Status: Acute Assessment and Plan: Elevated transaminases. Hepatitis panel resulted and positive Hep A and Hep C. Will continue to monitor CMP QD. Seen by GI and educated on Hep A. GI ordered work up for Hep C, Hep C quantitative and genotype to assess for active infection. Awaiting further recommendations from GI. Follow up out pt with GI at discharge. (2) Elevated transaminase level Current Visit: Yes Status: Acute Assessment and Plan: Pt denies prior history of hepatitis. Hepatitis panel positive for Hep A and Hep C. Abdominal US showing wall thickening which can also been seen in acute Hep A. Will continue to monitor LFT's. GI consulted by ED and saw pt in consult. (3) Elevated bilirubin Current Visit: Yes Status: Acute Assessment and Plan: Bili 6.9 now 6.5. Will rehceck levels in am. (4) Thickening of wall of gallbladder Current Visit: Yes Status: Acute Assessment and Plan: Pt afebrile and WBC 3.1. Will go ahead and check NM scan. However states abdominal pain improved and she is afebrile. No leukocytosis. since Hep panel positive. (5) Jaundice Current Visit: Yes Status: Acute Assessment and Plan: Bilirubin 6.9 on admission. Will monitor CMP and Hepatitis panel in progress. (6) IV drug user Current Visit: Yes Status: Acute Assessment and Plan: Pt admits to using heroine. Urine tox screen positive for opiates and benzos. Pt is from [facility]pt rehab and requesting psych eval prior to patient going back to inpt psych. Apparently inpt psych requesting evaluation. DVT Prophylaxis: Lovenox - Summary of Assessment and Plan Summary of Assessment and Plan: Ms. Miroslava Donato is a 32 year old female with PMHx of asthma and IV drug use who presented with jaundice. She reports using heroin 05/12/2018. She reports sharing needles and denies any intranasal drug use. She has multiple tattoos, and states they were all professionally completed. She reports eating out frequently. States she notice she was turning yellow a week ago and her urine was dark. She denies hx of STD, HIV, and Hepatitis. She denies any change in stool color, dysuria, lower abdominal pain, vomiting, headaches, fevers, chills. RUQ US showed gallbladder wall thickening at 15 mm with small sludge and pericholecystic fluid, concerning for acute cholecystitis. MRCP with gallbladder sludge, periportal edema, diffuse moderate wall edema of the gallbladder which shows intraluminal sludge could be due to hepatitis if applicable, acute cholecystitis is possible. - Time Spent with Patient Total time spent is greater than 50% in coordination of care (as documented) at patient's floor/unit and/or counseling patient: less than 15 minutes Plan of Care Discussed with: patient Internal Medicine: Result - Labs CBC & Chem 7: 05/15/18 03:03 05/14/18 10:23 Labs: Short CBC 05/15/18 Range/Units 03:03 WBC 2.8 L (4.3-11.1) K/mcL Hgb 9.0 L (11.5-15.4) g/dL Hct 27.9 L (35.3-44.9) % Plt Count 266 (140-400) K/mcL Neutrophils # 1.3 L (1.6-8.9) K/mcL - ABG Interpretation ABG results: PT/INR, D-dimer PT 14.9 Seconds (9.4-12.1) H 05/13/18 11:37 Consult Discharge Plan - Plan Referrals: [facility] [Outside] Suzie Acharya, PERSONAL SERVICE REPRESENTATIVE [Primary Care Provider] -
[2018-05-15 14:57] LABS: Alanine Aminotransferase 481 Units/L (7-52); Albumin 3.2 g/dL (3.5-5.7); Alkaline Phosphatase 323 Units/L (34-104); Aspartate Amino Transferase 183 Units/L (13-39); BUN/Creatinine Ratio 9 (6-26); Bilirubin,Total 5.4 mg/dL (0.3-1.0); Blood Urea Nitrogen 6 mg/dL (6-20); Calcium 8.6 mg/dL (8.6-10.3); Carbon Dioxide 29 mEq/L (23-29); Chloride 105 mEq/L (98-107); Globulin 3.1 g/dL (2.4-3.5); Glucose 104 mg/dL (70-105); Osmolality,Calculated 284 (280-300); Potassium 4.1 mEq/L (3.5-5.1); Sodium 138 mEq/L (136-145); Total Protein 6.3 g/dL (6.4-8.9); eGFR For Non-African Americans > 60 (> 60)
[2018-05-15 16:43] LABS: Chlamydia Trachomatis DNA Ur NOT DETECTED (Not Detect)
[2018-05-16 04:03] LABS: Basophils % 0.9 %; Eosinophils # 0.1 K/mcL (0.0-0.6); Eosinophils % 4.1 %; Hematocrit 29.7 % (35.3-44.9); Hemoglobin 9.6 g/dL (11.5-15.4); Lymphocytes # 1.7 K/mcL (0.6-4.6); Lymphocytes % 50.6 %; Mean Corpuscular HGB Conc 32.3 g/dL (31.6-35.5); Mean Corpuscular Hemoglobin 26.3 pg (28.0-33.3); Mean Corpuscular Volume 81.4 fL (83.0-100.0); Mean Platelet Volume 10.2 fL (9.4-12.4); Monocytes # 0.3 K/mcL (0.0-1.3); Monocytes % 9.3 %; Neutrophils # 1.2 K/mcL (1.6-8.9); Platelet Count 312 K/mcL (140-400); Red Blood Count 3.65 M/mcL (3.82-4.97); Red Cell Distribution Width 17.2 % (11.5-14.5); Segmented Neutrophils % 35.1 %
[2018-05-16 05:06] LABS: Platelet Estimate Normal (Normal); Reactive Lymphocytes Present (Not Present)
[2018-05-16 05:07] LABS: Anisocytosis 1+ (Not Present); Hypochromasia Present (Not Present)
[2018-05-16] MEDS: *HR* Enoxaparin 40 MG/0.4 ML SYRINGE SQ SCH (05:23)
[2018-05-16] MEDS: 0.9 % Sodium Chloride 1,000 ML IVC SCH ×2 (06:37→21:32)
[2018-05-16] MEDS: Loratadine 10 MG TABLET PO SCH (09:08)
[2018-05-16] MEDS: clonazePAM 0.5 MG TABLET PO SCH ×2 (09:09→20:11)
[2018-05-16] MEDS: traMADol 50 MG TABLET PO PRN ×2 (09:12→20:21)
[2018-05-16] MEDS: Ondansetron 4 MG/2 ML VIAL IVP PRN ×2 (09:12→20:21)
--- NOTE | 2018-05-16 13:21 | Internal Med Progress Note ---
Hospitalist Progress Note - Encounter Date of Encounter: 05/16/18 Time of Encounter: 08:35 - Subjective Interval History: Patient seen and examined this morning. No acute overnight events. Denies new complains. Minimal abdominal soreness. Tolerating diet well. No fever, chills, N/V/D. - Exam Vitals: Temp Pulse Resp BP Pulse Ox 98.3 F 86 14 109/69 92 05/16/18 09:49 05/16/18 09:49 05/16/18 09:49 05/16/18 09:49 05/16/18 09:49 Exam: General: In no acute distress. Conversant. Multiple tattoos on face. HEENT: Sclearl icterus present Respiratory exam: CTAB. no accessory muscle use, rales, rhonchi, wheezes Cardiovascular exam: RRR, +S1, +S2. no murmur, gallop, rubs. GI/Abdominal exam: mild RUQ tenderness, Non-distended, normal bowel sounds, soft, no peritoneal signs. Extremities exam: full ROM, no pedal edema, warm, pulses palpable in b/l lower extremities. no calf tenderness Neurological exam: CN II-XII intact, AO X3, no focal deficits. no pronater drift, facial droop, speech deficit Skin exam: Jaundiced skin, ulcer, purpura or ecchymosis. - Assessment and Plan (1) Elevated bilirubin Current Visit: Yes Status: Acute (2) Elevated transaminase level Current Visit: Yes Status: Acute (3) Thickening of wall of gallbladder Current Visit: Yes Status: Acute (4) Jaundice Current Visit: Yes Status: Acute (5) IV drug user Current Visit: Yes Status: Acute (6) Acute hepatitis Current Visit: Yes Status: Acute - Summary of Assessment and Plan Summary of Assessment and Plan: Acute hepatitis A - Elevated transaminases. Hepatitis panel resulted and positive Hep A and Hep C. - Seen by GI and educated on Hep A. - f/u Hep C quantitative and genotype to assess for active infection. - f/u AFP, antibody testing. Thickening of wall of gallbladder - Likely secondary to Hepatitis - Pt afebrile and WBC 3.1. Will go ahead and check NM scan. However states abdominal pain improved and she is afebrile. No leukocytosis. since Hep panel positive. IV drug user - Pt admits to using heroine. - Urine tox screen positive for opiates and benzos. - Pt is from [facility]pt rehab and SW requesting psych eval prior to patient going back to inpt psych. - f/u psych recommendation - Time Spent with Patient Total time spent is greater than 50% in coordination of care (as documented) at patient's floor/unit and/or counseling patient: Internal Medicine: Result - Labs CBC & Chem 7: 05/16/18 03:39 05/15/18 14:26 Labs: Short CBC 05/16/18 Range/Units 03:39 WBC 3.4 L (4.3-11.1) K/mcL Hgb 9.6 L (11.5-15.4) g/dL Hct 29.7 L (35.3-44.9) % Plt Count 312 (140-400) K/mcL Neutrophils # 1.2 L (1.6-8.9) K/mcL BMP 05/15/18 14:26 Sodium 138 Potassium 4.1 Chloride 105 Carbon Dioxide 29 BUN 6 Creatinine 0.70 Glucose 104 Calcium 8.6 Liver Function 05/15/18 Range/Units 14:26 Total Bilirubin 5.4 H (0.3-1.0) mg/dL AST 183 H (13-39) Units/L ALT 481 H (7-52) Units/L Alkaline Phosphatase 323 H (34-104) Units/L Albumin 3.2 L (3.5-5.7) g/dL - ABG Interpretation ABG results: PT/INR, D-dimer PT 14.9 Seconds (9.4-12.1) H 05/13/18 11:37 Consult Discharge Plan - Plan Referrals: [facility] [Outside] (A staff member from [facility] will call you Thursday morning regarding further instructions and mental health appointments. You will also be able to complete the referral process for s ubstance abuse outpatient treatment at that time if you are interested.) Marck,Suzie Montes CNP [Primary Care Provider] -
[2018-05-17] MEDS: *HR* Enoxaparin 40 MG/0.4 ML SYRINGE SQ SCH (05:31)
[2018-05-17 07:50] LABS: AFP Tumor Marker Non-Pregnant 8 ng/mL (0-9); ANA IgG by ELISA NONE DETECTED (None Detected); F-Actin (sm muscle) Ab IgG 13 Units (0-19); HCV Quant Interpretation NOT DETECTED (Not Detected); HCV Quant Log NOT DETECTED log IU/mL
[2018-05-17 08:12] LABS: Myeloperoxidase Ab 0 AU/mL (0-19); Serine Protease-3 Antibody 3 AU/mL (0-19)
--- NOTE | 2018-05-17 11:17 | Internal Med Progress Note ---
Hospitalist Progress Note - Subjective Interval History: Patient seen and examined this morning. No acute overnight events. Denies new complains. Minimal abdominal soreness. Tolerating diet well. No fever, chills, N/V/D. - Exam Vitals: Temp Pulse Resp BP Pulse Ox 98.5 F 88 14 106/69 96 05/17/18 04:55 05/17/18 04:55 05/17/18 04:55 05/17/18 04:55 05/17/18 04:55 - Assessment and Plan (1) Elevated bilirubin Current Visit: Yes Status: Acute (2) Elevated transaminase level Current Visit: Yes Status: Acute (3) Thickening of wall of gallbladder Current Visit: Yes Status: Acute (4) Jaundice Current Visit: Yes Status: Acute (5) IV drug user Current Visit: Yes Status: Acute (6) Acute hepatitis Current Visit: Yes Status: Acute - Time Spent with Patient Total time spent is greater than 50% in coordination of care (as documented) at patient's floor/unit and/or counseling patient: Internal Medicine: Result - Labs CBC & Chem 7: 05/16/18 03:39 05/15/18 14:26 - ABG Interpretation ABG results: PT/INR, D-dimer PT 14.9 Seconds (9.4-12.1) H 05/13/18 11:37 Consult Discharge Plan - Plan Referrals: [facility] [Outside] (A staff member from [facility] will call you Thursday morning regarding further instructions and mental health appointments. You will also be able to complete the referral process for substance abuse outpatient treatment at that time if you are interested.) Suzie Acharya SCHOOL OFFICE MANAGER [Primary Care Provider] -
[2018-05-17] MEDS: Loratadine 10 MG TABLET PO SCH (12:04)
[2018-05-17] MEDS: traMADol 50 MG TABLET PO PRN ×2 (12:05→20:33)
[2018-05-17] MEDS: clonazePAM 0.5 MG TABLET PO SCH ×2 (12:05→20:32)
--- NOTE | 2018-05-17 15:37 | Discharge Summary ---
Orders not resulted at time of discharge: Pending orders 05/13/18 20:50 Urine tox screen [Drug Screen, Urine] [UCHEM] Routine 05/14/18 09:30 Occult Blood,Stool [BF] Routine 05/14/18 10:23 Hepatitis C Qnt Reflx Genotype Routine 05/15/18 14:26 HSV 1 & 2 Glycoprotein G IgG Routine VDRL Routine Date of Encounter: 05/17/18 Time of Encounter: 09:56 - Discharge Diagnosis (1) Elevated bilirubin Priority: Primary Status: Acute (2) Elevated transaminase level Priority: Primary Status: Acute (3) Thickening of wall of gallbladder Priority: Primary Status: Acute (4) Jaundice Priority: Primary Status: Acute (5) IV drug user Priority: Secondary Status: Acute (6) Acute hepatitis Priority: Primary Status: Acute (7) Hepatitis A Priority: Primary Status: Acute Qualifiers: Hepatic coma status: without hepatic coma Qualified Code(s): B15.9 - Hepatitis A without hepatic coma Hospital course: Ms. Miroslava Donato is a 32 year old female with past medical history of IV drug use who presented with jaundice was found to have elevated liver function test including transaminase and bilirubin and was found to have hepatitis A. Urine toxicology screen was positive for opiates. Patient was transferred here from urgent care from an inpatient psychiatric facility. GI was also consulted. Patient hepatitis antibody came positive however at HCV RNA was negative. Patient's testing for SHAYAN, myeloperoxidase antibody, mitochondrial antibody, IgG antibody for affect in and protease antibody were negative. Patient had a abdominal ultrasound which showed prominent gallbladder wall thickening which was also noted on MRCP and HIDA scan was ordered which showed delayed gallbladder feeling likely secondary to decreased hepatocellular dysfunction from her hepatitis all findings consistent with hepatitis. Patient was stable to be discharged to inpatient psychiatric facility. - Time Spent with Patient Total time spent providing and/or coordinating discharge services: Greater than 30 minutes (46) - Discharge Medications Home Medications: Albuterol Sulfate [Ventolin Hfa] 2 puff PO DAILY PRN 05/13/18 [History] Loratadine [Claritin] 10 mg PO DAILY 05/13/18 [History] Omeprazole [PriLOSEC] 20 mg PO DAILY 05/13/18 [History] PARoxetine HCl [Paroxetine HCl] 20 mg PO DAILY 05/13/18 [History] Quetiapine Fumarate [Seroquel] 25 mg PO HS 05/13/18 [History] clonazePAM [Clonazepam] 1 tab PO BID 05/13/18 [History] Allergies/Adverse Reactions: Allergy/AdvReac Type Severity Reaction Status Date / Time No Known Allergies Allergy Verified 01/27/18 23:39 Date of admission: 05/13/18 16:24 Primary care physician: Suzie Acharya CNP Consults: 05/13/18 16:08 Consult to Gastroenterology [CONS] Stat Consulting Provider: [facility] [place] Reason for Consult: Concern for obstructive biliary vs hepatitis Call Completed: Yes 05/13/18 18:26 Consult to Pcb Designer [CONS] Routine Reason for SW Consult: discharge planning, pt from [facility] 05/15/18 08:15 Consult to Psychiatry [CONS] Routine Consulting Provider: Psychiatry Rosa M Reason consult: Other Other reason and/or additional details: Pt will need re evaluated prior to being discharged back to in pt rehab Call Completed: Yes Discharging clinician: Emilia Kemp - Constitutional Vitals: Temp Pulse Resp BP Pulse Ox 98.4 F 99 16 119/85 99 05/17/18 14:23 05/17/18 14:23 05/17/18 14:23 05/17/18 14:23 05/17/18 14:23 General appearance: Present: A&O X 3, no acute distress Exam: General: In no acute distress. Conversant. Multiple tattoos on face. HEENT: Sclearl icterus present Respiratory exam: CTAB. no accessory muscle use, rales, rhonchi, wheezes Cardiovascular exam: RRR, +S1, +S2. no murmur, gallop, rubs. GI/Abdominal exam: no tenderness, Non-distended, normal bowel sounds, soft, no peritoneal signs. Extremities exam: full ROM, no pedal edema, warm, pulses palpable in b/l lower extremities. no calf tenderness Neurological exam: CN II-XII intact, AO X3, no focal deficits. no pronater drift, facial droop, speech deficit Skin exam: Jaundiced skin, ulcer, purpura or ecchymosis. - Patient Status Disposition: Transfer Psychiatric Hosp Condition: Good - Discharge Instructions Follow Up With: [facility] [Outside] (A staff member from [facility] will call you Thursday morning regarding further instructions and mental health appointments. You will also be able to complete the referral process for substance abuse outpatient treatment at that time if you are interested.) Marck,Suzie Montes CNP [Primary Care Provider] - - Diet and Activity Activity: resume usual activities as tolerated
[2018-05-18] MEDS: *HR* Enoxaparin 40 MG/0.4 ML SYRINGE SQ SCH (05:07)
[2018-05-18] MEDS: clonazePAM 0.5 MG TABLET PO SCH ×2 (08:13→20:28)
[2018-05-18] MEDS: Loratadine 10 MG TABLET PO SCH (08:13)
[2018-05-18] MEDS: traMADol 50 MG TABLET PO PRN (14:29)
[2018-05-18] MEDS ORDERED: Acetaminophen/Butalbital/CaffeineTABLET PO PRN (18:13)
--- NOTE | 2018-05-18 23:14 | Internal Med Progress Note ---
Hospitalist Progress Note - Encounter Date of Encounter: 05/18/18 Time of Encounter: 19:00 - Subjective Interval History: SUBJECTIVE: The patient feels pretty good. She would like to continue her treatments in the mental health institution, she was treated at, before sending her here. For some reason they cannot accept her there. She is rate to go home, as she is of suicidal ideations she had recently. She has never made suicidal plans. Denies abdominal pain, nausea and vomiting. She has normal urination. OBJECTIVE: Skin: Free of rash and discoloration. ENMT: Oral/pharyngeal mucosa is normal in appearance. Eyes: Sclera is white. There is no discharge from eyes. Respiratory: Normal breath sounds; no crackles or wheezes. CV: Heart is regular; no gallop or murmur. GI: Abdomen is soft and not tender. There is no palpable mass or visceromegaly. Neuro: There is no focal deficits. ADDITIONAL DATA: Her blood tests from 2 days ago showed hemoglobin of 9.6 with WBC of 3.4 thousand and normal platelet count. Her last liver function tests from 3 days ago: Bilirubin of 5.4 with AST of 183 and ALT of 441; alk phos of 323. ASSESSMENT AND PLAN: Hepatitis A. She has history of hepatitis C (viral load is negative). To continue supportive treatments. We will repeat her liver function tests in the morning. IV heroine user. Depression with anxiety/Suicidal ideations. We will reconsult psychiatry. Asthma. We will continue when necessary inhalers. - Exam Vitals: Temp Pulse Resp BP Pulse Ox 98.3 F 99 14 103/69 95 05/18/18 20:18 05/18/18 20:18 05/18/18 20:18 05/18/18 20:18 05/18/18 20:18 Exam: xx - Assessment and Plan (1) Hepatitis A Current Visit: Yes Status: Acute (2) IV drug user Current Visit: Yes Status: Acute (3) Suicidal ideations Current Visit: Yes Status: Acute (4) Depression with anxiety Current Visit: Yes Status: Chronic (5) Asthma Current Visit: Yes Status: Acute (6) GERD (gastroesophageal reflux disease) Current Visit: Yes Status: Acute (7) Hx of hepatitis C Current Visit: Yes Status: Chronic - Time Spent with Patient Total time spent is greater than 50% in coordination of care (as documented) at patient's floor/unit and/or counseling patient: 25 - 35 minutes Plan of Care Discussed with: patient Internal Medicine: Result - Labs CBC & Chem 7: 05/16/18 03:39 05/15/18 14:26 - ABG Interpretation ABG results: PT/INR, D-dimer PT 14.9 Seconds (9.4-12.1) H 05/13/18 11:37 Consult Discharge Plan - Plan Referrals: [facility] [Outside] (A staff member from [facility] will call you Thursday morning regarding further instructions and mental health appoin tments. You will also be able to complete the referral process for substance abuse outpatient treatment at that time if you are interested.) Suzie Acharya CNP [Primary Care Provider] - 05/20/18 1:45 pm (1) Hepatitis A Qualifiers: Hepatic coma status: without hepatic coma Qualified Code(s): B15.9 - Hepatitis A without hepatic coma (5) Asthma Qualifiers: Asthma severity: mild Asthma persistence: intermittent Asthma complication type: uncomplicated Qualified Code(s): J45.20 - Mild intermittent asthma, uncomplicated (6) GERD (gastroesophageal reflux disease) Qualifiers: Esophagitis presence: esophagitis presence not specified Qualified Code(s): K21.9 - Gastro-esophageal reflux disease without esophagitis
[2018-05-19 04:43] LABS: Basophils % 0.6 %; Eosinophils # 0.1 K/mcL (0.0-0.6); Eosinophils % 2.8 %; Hematocrit 32.9 % (35.3-44.9); Hemoglobin 10.3 g/dL (11.5-15.4); Immature Granulocytes % 0.2 % (0-4); Lymphocytes % 42.6 %; Mean Corpuscular HGB Conc 31.3 g/dL (31.6-35.5); Mean Corpuscular Hemoglobin 26.3 pg (28.0-33.3); Mean Corpuscular Volume 84.1 fL (83.0-100.0); Mean Platelet Volume 10.5 fL (9.4-12.4); Monocytes # 0.4 K/mcL (0.0-1.3); Monocytes % 9.2 %; Neutrophils # 2.1 K/mcL (1.6-8.9); Platelet Count 339 K/mcL (140-400); Red Blood Count 3.91 M/mcL (3.82-4.97); Red Cell Distribution Width 19.1 % (11.5-14.5); Segmented Neutrophils % 44.6 %
[2018-05-19 05:16] LABS: Alanine Aminotransferase 279 Units/L (7-52); Albumin 3.6 g/dL (3.5-5.7); Albumin/Globulin Ratio 0.9 (1.1-2.2); Alkaline Phosphatase 471 Units/L (34-104); Aspartate Amino Transferase 127 Units/L (13-39); BUN/Creatinine Ratio 22 (6-26); Bilirubin,Direct 0.9 mg/dL (0.0-0.2); Bilirubin,Indirect 1.6 mg/dL (0.0-1.2); Bilirubin,Total 2.5 mg/dL (0.3-1.0); Blood Urea Nitrogen 11 mg/dL (6-20); Calcium 9.5 mg/dL (8.6-10.3); Carbon Dioxide 28 mEq/L (23-29); Chloride 102 mEq/L (98-107); Globulin 3.8 g/dL (2.4-3.5); Glucose 102 mg/dL (70-105); Osmolality,Calculated 282 (280-300); Potassium 4.1 mEq/L (3.5-5.1); Sodium 136 mEq/L (136-145); Total Protein 7.4 g/dL (6.4-8.9); eGFR For Non-African Americans > 60 (> 60)
[2018-05-19] MEDS: *HR* Enoxaparin 40 MG/0.4 ML SYRINGE SQ SCH (05:20)
[2018-05-19 07:15] VITALS: BP 103/68
[2018-05-19] MEDS: clonazePAM 0.5 MG TABLET PO SCH ×2 (10:17→21:00)
[2018-05-19] MEDS: Loratadine 10 MG TABLET PO SCH (10:17)
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
[2018-05-19] MEDS: traMADol 50 MG TABLET PO PRN (21:00)
--- NOTE | 2018-05-19 21:35 | Internal Med Progress Note ---
Hospitalist Progress Note - Encounter Date of Encounter: 05/19/18 Time of Encounter: 18:00 - Subjective Interval History: SUBJECTIVE: The patient seems to be very emotionally unstable. See psychiatric evaluation from today. It looks like she needs inpatient psychiatric treatment. Denies abdominal pain, nausea and vomiting. Her jaundice is hardly visible. OBJECTIVE: Skin: Free of rash and discoloration. ENMT: Oral/pharyngeal mucosa is normal in appearance. Eyes: Sclera is white. There is no discharge from eyes. Respiratory: Normal breath sounds; no crackles or wheezes. CV: Heart is regular; no gallop or murmur. GI: Abdomen is soft and not tender. There is no palpable mass or visceromegaly. Neuro: There is no focal deficits. ADDITIONAL DATA: CBC shows hemoglobin of 10.3 with normal WBC/platelet count. Electrolytes are normal. Creatinine is 0.51. Bilirubin is 2.5; 5.4 was 4 days ago. AST, ALT and alk phos are 127, 279 and 471 respectively. ASSESSMENT AND PLAN: Hepatitis A. She has history of hepatitis C (viral load is negative). To continue supportive treatments. Her bilirubin is close to normal.. IV heroine user. Depression with anxiety/Suicidal ideations. Psychiatry is reconsulted. They recommend inpatient psychiatric treatment. Asthma. We will continue when necessary inhalers. - Exam Vitals: Temp Pulse Resp BP Pulse Ox 98.3 F 83 14 103/68 92 05/19/18 07:12 05/19/18 07:12 05/19/18 07:12 05/19/18 07:12 05/19/18 08:30 Exam: xx - Assessment and Plan (1) Hepatitis A Current Visit: Yes Status: Acute (2) IV drug user Current Visit: Yes Status: Acute (3) Suicidal ideations Current Visit: Yes Status: Acute (4) Depression with anxiety Current Visit: Yes Status: Chronic (5) Asthma Current Visit: Yes Status: Acute (6) GERD (gastroesophageal reflux disease) Current Visit: Yes Status: Acute (7) Hx of hepatitis C Current Visit: Yes Status: Chronic - Time Spent with Patient Total time spent is greater than 50% in coordination of care (as documented) at patient's floor/unit and/or counseling patient: 25 - 35 minutes Plan of Care Discussed with: patient Internal Medicine: Result - Labs CBC & Chem 7: 05/19/18 04:29 10/24/18 04:29 Labs: Short CBC 05/19/18 Range/Units 04:29 WBC 4.7 (4.3-11.1) K/mcL Hgb 10.3 L (11.5-15.4) g/dL Hct 32.9 L (35.3-44.9) % Plt Count 339 (140-400) K/mcL Neutrophils # 2.1 (1.6-8.9) K/mcL BMP 05/19/18 04:29 Sodium 136 Potassium 4.1 Chloride 102 Carbon Dioxide 28 BUN 11 Creatinine 0.51 L Glucose 102 Calcium 9.5 Liver Function 05/19/18 Range/Units 04:29 Total Bilirubin 2.5 H (0.3-1.0) mg/dL Direct Bilirubin 0.9 H (0.0-0.2) mg/dL AST 127 H (13-39) Units/L ALT 279 H (7-52) Units/L Alkaline Phosphatase 471 H (34-104) Units/L Albumin 3.6 (3.5-5.7) g/dL - ABG Interpretation ABG results: PT/INR, D-dimer PT 14.9 Seconds (9.4-12.1) H 05/13/18 11:37 Consult Discharge Plan - Plan Instructions: Anxiety (DC) Referrals: [facility] [Outside] (A staff member from [facility] will call you Thursday morning regarding further instructions and mental health appointments. You will also be able to complete the referral process for substance abuse outpatient treatment at that time if you are interested.) Suzie Acharya CNP [Primary Care Provider] - 05/20/18 1:45 pm (1) Hepatitis A Qualifiers: Hepatic coma status: without hepatic coma Qualified Code(s): B15.9 - Hepatitis A without hepatic coma (5) Asthma Qualifiers: Asthma severity: mild Asthma persistence: intermittent Asthma complication type: uncomplicated Qualified Code(s): J45.20 - Mild intermittent asthma, uncomplicated (6) GERD (gastroesophageal reflux disease) Qualifiers: Esophagitis presence: esophagitis presence not specified Qualified Code(s): K21.9 - Gastro-esophageal reflux disease without esophagitis
[2018-05-19 22:35] LABS: Amphetamine Screen,Urine Negative ng/mL (Cutoff=1000); Barbiturate Screen,Urine Positive ng/mL (Cutoff=200); Benzodiazepines Screen,Urine Positive ng/mL (Cutoff=200); Cannabinoid Screen,Urine Negative ng/mL (Cutoff = 50); Cocaine Screen,Urine Negative ng/mL (Cutoff= 300); Opiate Screen,Urine Positive ng/mL (Cutoff=300); Phencyclidine Screen,Urine Negative ng/mL (Cutoff=25)
--- NOTE | 2018-05-19 22:51 | Discharge Summary ---
Orders not resulted at time of discharge: Pending orders 05/13/18 20:50 Urine tox screen [Drug Screen, Urine] [UCHEM] Routine 05/14/18 09:30 Occult Blood,Stool [BF] Routine 05/14/18 10:23 Hepatitis C Qnt Reflx Genotype Routine Date of Encounter: 05/19/18 Time of Encounter: 19:00 - Discharge Diagnosis (1) Hepatitis A Priority: Primary Status: Acute Qualifiers: Hepatic coma status: without hepatic coma Qualified Code(s): B15.9 - Hepatitis A without hepatic coma (2) IV drug user Priority: Primary Status: Chronic (3) Suicidal ideations Priority: Primary Status: Acute (4) Depression with anxiety Priority: Primary Status: Chronic (5) Asthma Priority: Secondary Status: Chronic Qualifiers: Asthma severity: mild Asthma persistence: intermittent Asthma complication type: uncomplicated Qualified Code(s): J45.20 - Mild intermittent asthma, uncomplicated (6) GERD (gastroesophageal reflux disease) Priority: Secondary Status: Chronic Qualifiers: Esophagitis presence: esophagitis presence not specified Qualified Code(s): K21.9 - Gastro-esophageal reflux disease without esophagitis (7) Hx of hepatitis C Priority: Secondary Status: Chronic Hospital course: HOSPITAL COURSE: The patient is a 32-year-old woman with history of IV drug use (heroin). She also developed hypnotic sedative addiction. We admitted her from a mental health institution where she was treated for her addictions. She developed severe jaundice secondary to hepatitis A. We found her to have hepatitis C antibody; RNA viral load was negative. We offered her supportive treatments. His bilirubin decreased from 6.5 to 2.5. Nausea and vomiting subsided. The patient reported to have suicidal ideations without any particular plans. They happen when she is alone at home. This is why we requested psychiatric consult. It happened today. There is a separate dictation for that. The patient was qualified for inpatient psychiatric treatment. CONDITION AT DISCHARGE: Is pretty good. Denies abdominal pain, nausea and vomiting. She seems to have good appetite. Skin: There is mild jaundice. Otherwise, she does not have any rash. Respiratory: Normal breath sounds with no crackles and wheezes bilaterally. CV: Heart is regular with no gallop or murmur. GI: Abdomen is flat and soft with no palpable mass or visceromegaly. Neuro exam: There is no focal deficits. Normal speech, swallowing and gait. SEE DISCHARGE ORDERS/MEDICATIONS.. Discharge discussed with: patient - Time Spent with Patient Total time spent providing and/or coordinating discharge services: Greater than 30 minutes (40 minutes..) - Discharge Medications Home Medications: Albuterol Sulfate [Ventolin Hfa] 2 puff PO DAILY PRN 05/13/18 [History] Loratadine [Claritin] 10 mg PO DAILY 05/13/18 [History] Omeprazole [PriLOSEC] 20 mg PO DAILY 05/13/18 [History] PARoxetine HCl [Paroxetine HCl] 20 mg PO DAILY 05/13/18 [History] Quetiapine Fumarate [Seroquel] 25 mg PO HS 05/13/18 [History] clonazePAM [Clonazepam] 1 tab PO BID 05/13/18 [History] Allergies/Adverse Reactions: Allergy/AdvReac Type Severity Reaction Status Date / Time No Known Allergies Allergy Verified 01/27/18 23:39 Date of admission: 05/13/18 16:24 Primary care physician: Suzie Acharya CNP Consults: 05/13/18 16:08 Consult to Gastroenterology [CONS] Stat Consulting Provider: Gastroenterology Rosa M Reason for Consult: Concern for obstructive biliary vs hepatitis Call Completed: Yes 05/13/18 18:26 Consult to Individual Pension Consultant [CONS] Routine Reason for SW Consult: discharge planning, pt from [facility] 05/15/18 08:15 Consult to Psychiatry [CONS] Routine Consulting Provider: Psychiatry Rosa M Reason consult: Other Other reason and/or additional details: Pt will need re evaluated prior to being discharged back to in pt rehab Call Completed: Yes 05/18/18 17:17 Consult to Psychiatry [CONS] Routine Consulting Provider: Psychiatry [place] Reason consult: Other Other reason and/or additional details: SUICIDAL IDEATIONS; IV HEROIN USER. HASN'T MADE ANY PLANS.. Time Notified: 17:15 Call Completed: Yes Discharging clinician: Herb Knapp Anticipated date of discharge: 05/19/18 - Constitutional Vitals: Temp Pulse Resp BP Pulse Ox 98.3 F 83 14 103/68 92 05/19/18 07:12 05/19/18 07:12 05/19/18 07:12 05/19/18 07:12 05/19/18 08:30 General appearance: Present: A&O X 3, no acute distress, answers questions appropriately Exam: xx - Patient Status Disposition: Transfer Psychiatric Hosp Condition: Fair Functional capacity at discharge: independent ambulation Overall status at discharge: patient is not back to baseline - Discharge Instructions Instructions: Anxiety (DC) Follow Up With: [facility] [Outside] (A staff member from [facility] will call you Thursday morning regarding further instructions and mental health appointments. You will also be able to complete the referral process for substance abuse outpatient treatment at that time if you are interested.) Suzie Acharya CNP [Primary Care Provider] - 05/20/18 1:45 pm - Diet and Activity Activity: resume usual activities as tolerated Diet: low fat, low cholesterol - VTE Reasons for not Prescribing Prophylaxis: Treatment not Indicated - Low risk for VTE Deep Vein Thrombosis/Pulmonary Embolism Present on Admission: No
--- NOTE | 2018-05-20 16:31 | Event Note ---
Date of Encounter: 05/19/18 Time of Encounter: 19:55 Alerted by pts. nurse BRITTANY Gan that pt. was to go to and that pts. nurse had been working closely with Psychiatry/Dr. Joseph all day to make this come to fruition but that pt. was stating that she did not want to go to [facility] but instead wished to go home. Pts. discharge order had been completed by Dr. Knapp during the day. At 19:55, nurse stated that the pt. and her SO left the unit and locked themselves into the private bathroom. Security was notified. Pts. came out several minutes later and the pt. remained in the bathroom. When the was questioned, he stated that "he has to help her sometimes." Pt. exited bathroom several minutes later wiping her nose and sniffing loudly. Security instructed pt. and that they were not to go into the bathroom again and both verbalized understanding. Pt. and returned to pts. room. I ordered a stat urine tox screen on the pt. At 20:44, pt. stated she was now willing to go to . I called [facility] to discuss the situation and BRITTANY Reyes from stated he would be up to [facility] to discuss the pt. with me. Spoke w/BRITTANY Reyes who was directed by Dr. Joseph that the pt. would not be able to come to at this time d/t needing medical clearance from suspected drug ingestion/use. Eric stated that even if pt. went to ED for re-admission, she would be directed to rehab by d/t current drug abuse and needs. Eric stated that the pt. stated that she needed something to calm herself down and her was trying to help her. She stated she did not ingest very much Xanax. I agreed w/Dr. Joseph's plan for pt. to be referred to rehabilitation d/t current drug abuse since is not a drug rehabilitation unit. Stat urine tox screen was positive for opiates, benzodiazepines, and barbiturates. Pt. left the [facility] facility per discharge instructions and was instructed to follow instructions for drug rehabilitation.
== END 2018-05-19 21:40 ==
LOC: 3ANU 11:07 → EMEROOARM 11:07 → SUATTDRO 16:24 → 3ANU 17:10
PROVIDERS: ADMIT Internal Medicine; ATTEND Internal Medicine